=== PATIENT | male | born 1970 | race Two or more races ===

== ENCOUNTER 2024-06-15 14:04 | Outpatient (REF) | payer MEDICAID, SELFPAY ==
--- OUTSIDE RECORDS SUMMARY | 2024-06-15 14:33 | XMS_ITS | Encounter Summary ---
Author Organization [email or web address] Address [address] [facility] [address] [place] [address] Care Team Providers Care Park Naturalist Name Role Phone Veronica Andrew MD Primary Care Provider Reason for Visit * Reason Comments Sore Throat Encounter Details Date Type Department Care Team ([facility] Contact Info) Description 06/15/2024 1:20 PM EST Office Visit [facility] [address] [place], [place] [phone] Sore throat Social History Tobacco Use Types Packs/Day Years Used Date Smoking Tobacco: Never Smokeless Tobacco: Never Tobacco Cessation:Counseling Given: Not Answered Alcohol Use Standard Drinks/Week Comments Yes 2 (1 standard drink = 0.6 oz pur e alcohol) Sex and Gender Information Value Date Recorded Sex Assigned at Male 06/15/2024 11:47 AM EST Legal Sex Male 2:43 PM EDT Gender Identity Male 06/15/2024 11:47 AM EST Sexual Orientation Straight 06/15/2024 11 :47 AM EST documented as of this encounter Last Filed Vital Signs Vital Sign Reading Time Taken Comments Blood Pressure 112/68 06/15/2024 1:25 PM EST Pulse 67 06/15/2024 1:25 PM EST Temperature 36.2 ??C (97.1 ??F) 06/15/2024 1:25 PM ES T Respiratory Rate 19 06/15/2024 1:25 PM EST Oxygen Saturation 99% 06/15/2024 1:25 PM EST Inhaled Oxygen Concentration - - Weight 60 kg (132 lb 4 oz) 06/15/2024 1:25 PM ES T Height 165.1 cm (5' 5 ) 06/15/2024 1:25 PM EST Body Mass Index 22.01 06/15/2024 1:25 PM EST documented in this encounter Plan of Treatment Upcoming Encounters Date Type Department Care Team (Late st Contact Info) Description 08/17/2024 1:45 PM EDT Office Visit [facility] [address] [place] [address] Veronica Andrew MD [address] [place] [address] Scheduled Orders Name Type Priority Associated Diagnoses Orde r Schedule Chlamydia/N. Gonorrhoeae RNA, TMA, Urogenitial Microbiology Routine Sore throat Expected: 06/15/2024 (Approximate), Expires: 06/15/2025 HIV-1/2 Antigen and Antibodies, Fourth Generation, with Reflexes Lab Routine Sore throat Expected: 06/15/2024 (Approximate), Expires: 06/15/2025 Hepatitis C Antibody with Reflex to HCV, RNA, Quantitative, Real-Time PCR Lab Routine Sore throat Expected: 06/15/2024, Expires: 06/15/2025 RPR (Monitor) with Reflex to??Titer Lab Routine Sore throat Expected: 06/15/2024, Expires: 06/15/2025 CBC auto differential Lab Routine Sore throat Expected: 06/15/2024 (Approximate), Expires: 06/15/2025 Comprehensive Metabolic Panel Lab Routine Sore throat Expected: 06/15/2024 (Approximate), Expires: 06/15/2025 Lipid Panel, Standard Lab Routine Sore throat Expected: 06/15/2024 (Approximate), Expires: 06/15/2025 documented as of this encounter Procedures Procedure Name Priority Date/Time Associated Diagnosis Comments POC SUMNER ID NOW STREP A Routine 06/15/2024 1:28 PM EST Sore throat documented in this encounter Results * POCT Rapid Strep A SUMNER ID NOW (06/15/2024 1:28 PM EST) Pathologist [facility] Rapid Strep A Screen Negative Negative, None Detected QC Media Lot # [id number] Lot# Expiration Date ,[id number] Swab 06/15/2024 1:28 PM EST Veronica Andrew MD POINT OF CARE TEST ENTER/EDIT ORDERABLES Final Result documented in this encounter Visit Diagnoses Diagnosis Sore throat Acute pharyngitis documented in this encounter Care Teams Park Naturalist Relationship Specialty Start Date End Date Veronica Andrew MD [address] [place] [id number] PCP - General Family Medicine 06/15/24 documented as of this encounter
--- OUTSIDE RECORDS SUMMARY | 2024-06-15 14:33 | XMS_ITS | Clinical Summary ---
Author Organization [employer] Address [address] [facility] 7[address] [place] [address] Care Team Providers Care Fence Gate Assembler Name Role Phone Veronica Andrew MD Primary Care Provider [phone] Allergies No known active allergies Medications No known medications Active Problems No known active problems Encounters Date Type Department Care Team Description 06/15/2024 1:20 PM EST Office Visit [facility] [address] [place] [address] [phone] Sore throat 06/14/2024 Telephone [facility] [address] [place] [address] [phone] Tyrell Thomas MD new patient aPPT from Last 3 Months Social History Tobacco Use Types Packs/Day Years [...] Orientation Straight 06/15/2024 11 :47 AM EST Last Filed Vital Signs Vital Sign Reading [...] Mass Index 22.01 06/15/2024 1:25 PM EST Plan of Treatment Upcoming Encounters Date Type Department Care Team (Late st Contact Info) Description 08/17/2024 1:45 PM EDT Office Visit [facility] [address] [place] [address] Veronica Andrew MD [address] [place], [place] [phone] Health Maintenance Due Date Last Done Comments CT Colonography 1971 Colonoscopy 1971 Colorectal Cancer Screening 1971 Depression Screening 1971 FIT DNA/Cologuard 1971 FIT 1971 FOBT 1971 HIV Screening 1971 Lipid Panel 1971 SDOH Screening 1971 Sigmoidoscopy 1971 Alcohol/Substance Use Screening 1983 Tobacco Screening 1983 Family Planning (PISQ) 11/08/1986 Hepatitis C Screening 11/08/1989 DTaP/Tdap/Td Vaccines (1 - Tdap) 11/08/1990 Hepatitis B Vaccines (1 of 3 - 19+ 3-dose series) 11/08/1990 Pneumococcal Vaccine: 50+ Years (1 of 1 - PCV) 11/08/2021 Zoster Vaccines (1 of 2) 11/08/2021 COVID-19 Vaccine (3 - 2023-2 5 season) 2023 12/08/2020, 11/17/2020 Influenza Vaccine (#1) 2023 RSV Patients and Patients Aged 60 years or older (1 - 1-dose 75+ series) 11/08/2046 HIB Vaccines Aged Out No longer eligi ble based on patient's age to complete this topic HPV Vaccines Aged Out No longer eligi ble based on patient's age to complete this topic Hepatitis A Vaccines Aged Out No long er eligible based on patient's age to complete this topic IPV Vaccines Aged Out No longer eligi ble based on patient's age to complete this topic Meningococcal Vaccine Aged Out No moon miguel a eligible based on patient's age to complete this topic RSV under 20 months Aged Out No longe r eligible based on patient's age to complete this topic Rotavirus Vaccines Aged Out No longer eligible based on patient's age to complete this topic Procedures Procedure Name Priority Date/Time Associated Diagnosis Comments POC SUMNER ID NOW STREP A Routine 06/15/2024 1:28 PM EST Sore throat from Last 3 Months Results * POCT Rapid Strep A SUMNER ID NOW (06/15/2024 1:28 PM EST) Rapid Strep A Screen Negative Negative, None Detected QC Media Lot # [id number] Lot# Expiration Date [id number] Swab 06/15/2024 1:28 PM EST Veronica Andrew MD POINT OF CARE TEST ENTER/EDIT ORDERABLES Final Result from Last 3 Months Insurance , [facility], [place] [address] [employer] Care Teams Fence Gate Assembler Relationship Specialty Start Date End Date Veronica Andrew MD [address] [place] [address] PCP - General Family Medicine 06/15/24
--- OUTSIDE RECORDS SUMMARY | 2024-06-15 14:33 | XMS_ITS | Encounter Summary ---
Author Organization [employer] Address [address] [facility] 7[address] [place] [address] Care Team Providers Care Household Refrigerator Mechanic Name Role Phone Veronica Andrew MD Primary Care Provider [phone] Reason for Visit * Reason Onset Date Comments new patient aPPT 06/14/2024 Encounter Details Date Type Department Care Team ([facility] Contact Info) Description 06/14/2024 Telephone [facility] [address] [place], [place] [phone] Tyrell Thomas MD [address] [place] [address] new patient aPPT Social History Tobacco Use Types Packs/Day Years Used Date Smoking Tobacco: Never Assessed Sex and Gender Information Value Date Recorded Sex Assigned at Male 06/15/2024 11:47 AM EST Legal Sex Male 2:43 PM EDT Gender Identity Male 06/15/2024 11:47 AM EST Sexual Orientation Straight 06/15/2024 11 :47 AM EST documented as of this encounter Miscellaneous Notes * Telephone Encounter - Beverly Santamaria - 06/15/2024 9:30 AM EST Outgoing call to pt to book STOCK CHECKERER appt. The person you are calling cannot accept phone calls at thistime ( Please verify contact info. If pt comes in or happens to call. Thank you! ) * Telephone Encounter - Judith Mejía - 06/14/2024 3:46 PM EST PT walked in requesting a new patient appt States no-one has gotten back to him in 5 months. documented in this encounter Plan of Treatment Upcoming Encounters Date Type Department Care Team (Late st Contact Info) Description 08/17/2024 1:45 PM EDT Office Visit [facility] [address] [place] [address] Veronica Andrew MD [address] [place], [place] [phone] documented as of this encounter Visit Diagnoses Not on filedocumented in this encounter Care Teams Household Refrigerator Mechanic Relationship Specialty Start Date End Date Veronica Andrew MD [address] [place] [address] PCP - General Family Medicine 06/15/24 documented as of this encounter
[2024-06-15 16:41] LABS: MANUAL DIFF FLAG NO
[2024-06-15 16:51] LABS: Basophils Percent Auto 0.8 % (0-2); Eosinophils Absolute Auto 0.1 X10*3/uL (0.0-0.4); Eosinophils Percent Auto 1.9 % (0-4); Hematocrit 42.2 % (42.0-52.0); Hemoglobin 14.1 g/dl (14.0-18.0); Imm Gran Abs Auto 0.02 X10*3/uL (0.00-0.03); Imm Gran Pct Auto 0.4 % (0.0-0.4); Lymphocytes Absolute Auto 1.6 X10*3/uL (1.2-4.9); Lymphocytes Percent Auto 32.2 % (20-40); Mean Corpuscular HGB Conc 33.4 g/dl (31.0-36.0); Mean Corpuscular Hemoglobin 29.3 pg (27.0-33.0); Mean Corpuscular Volume 87.7 fL (80.0-98.0); Mean Platelet Volume 10.5 fL (9.4-12.4); Monocytes Absolute Auto 0.5 X10*3/uL (0.1-1.2); Neutrophils Absolute Auto 2.6 x10*3/uL (2.0-8.3); Neutrophils Percent Auto 53.7 % (45-73); Platelet Count 250 X10*3/uL (160-400); Red Blood Count 4.81 X10*6/uL (4.60-5.80); Red Cell Distribution Width 12.7 % (11.0-16.0); White Blood Count 4.8 X10*3/uL (4.8-10.8)
[2024-06-15 17:22] LABS: Alanine Aminotransferase 25 U/L (0-40); Albumin Level 4.4 g/dL (3.5-5.0); Alkaline Phosphatase 81 U/L (39-117); Anion Gap 9 (12-20); Aspartate Amino Transferase 41 U/L (5-37); Bilirubin Total 0.5 mg/dL (0.0-1.0); Blood Urea Nitrogen 9 mg/dL (9-16); Calcium 9.6 mg/dL (8.4-10.2); Carbon Dioxide 28 mmol/L (22-29); Chloride 106 mmol/L (96-108); Cholesterol 151 mg/dL (<200); Estimated Glomerular Filt Rate > 60; Glucose Random 99 mg/dL (60-115); HDL Cholesterol 48 mg/dL (>40); LDL Cholesterol Calculated 94 mg/dL (<100); Potassium 4.7 mmol/L (3.3-5.1); Sodium 138 mmol/L (135-145); Triglycerides 45 mg/dL (<150)
[2024-06-16 02:23] LABS: CT PCR NOT DETECTED (Not Detect.); NG PCR NOT DETECTED (Not Detect.)
[2024-06-16 08:13] LABS: HIV AB/AG Nonreactive (Nonreactive); HIV Num 1 0.05 S/CO (0.00-0.99); ~Hepatitis C Antibody Nonreactive (Nonreactive)
[2024-06-18 17:08] LABS: RPR Rapid Plasma Reagin NON-REACTIVE (NON-REACTIVE)
== END 2024-06-15 14:05 | disposition home or self-care (01) ==
LOC: HO.HHCL 14:04
PROVIDERS: Visit Provider General Practice
DX: J02.9 Acute pharyngitis, unspecified (principal)
CPT/HCPCS: 80053; 80061; 85025; 86592; 86803; 87389; 87491; 87591

== ENCOUNTER 2024-08-17 14:49 | Outpatient (REF) | payer MEDICAID, SELFPAY ==
--- OUTSIDE RECORDS SUMMARY | 2024-08-17 15:32 | XMS_ITS | Encounter Summary ---
Author Organization [employer] Address [address] [facility] [address] [place] [address] Care Team Providers Care Motor Vehicle Emissions Inspector Name Role Phone Veronica Andrew MD Primary Care Provider [phone] Reason for Visit * Reason Onset Date Comments Chart Prep 08/15/2024 Encounter Details Date Type Department Care Team ([facility] Contact Info) Description 08/15/2024 Telephone [facility] [address] [place] [phone] Veronica Andrew MD [address] [place], [place] [phone] Chart Prep Social History Tobacco Use Types Packs/Day Years Used Date Smoking Tobacco: Never Smokeless Tobacco: Never Alcohol Use Standard Drinks/Week Comments Yes 2 (1 standard drink = 0.6 oz pur e alcohol) Sex and Gender Information Value Date Recorded Sex Assigned at Male 06/15/2024 11:47 AM EST Legal Sex Male 2:43 PM EDT Gender Identity Male 06/15/2024 11:47 AM EST Sexual Orientation Straight 06/15/2024 11 :47 AM EST documented as of this encounter Miscellaneous Notes * Telephone Encounter - Francisca Colon MA - 08/15/2024 1:24 PM EDT Chart Prep Labs: done Images: done Referrals: [facility] Vaccines due: yes Screenings: colonoscopy Overdue care gaps: SBIRT, SDOH, PHQ-9, CHILANGO-7, Oral health screening, Disability screen, and Tobacco documented in this encounter Plan of Treatment Not on file documented as of this encounter Visit Diagnoses Not on filedocumented in this encounter Care Teams Motor Vehicle Emissions Inspector Relationship Specialty Start Date End Date Veronica Andrew MD [address] [place] [address] PCP - General Family Medicine 06/15/24 documented as of this encounter
--- OUTSIDE RECORDS SUMMARY | 2024-08-17 15:32 | XMS_ITS | Encounter Summary ---
Author Organization [employer] Address [address] [facility] 7[address] [place] [address] Care Team Providers Care Public Health Registrar Name Role Phone Veronica Andrew MD Primary Care Provider [phone] Encounter Details Date Type Department Care Team (Latest Contact Info) Description 08/17/2024 Travel Social History Tobacco Use Types Packs/Day Years Used Date Smoking Tobacco: Never Smokeless Tobacco: Never Alcohol Use Standard Drinks/Week Comments Yes 2 (1 standard drink = 0.6 oz pur e alcohol) Depression Answer Date Recorded Patient Health Questionnaire-9 Score 0 08/17/2024 Patient Health Questionnaire-9 Score 0 08/17/2024 Last PHQ-9: Questionnaire Data Not on file 0 08/17/2024 Housing Stability Answer Date Recorded What is your housing situation today? I have willy seymour 08/17/[address] you li ve. Do you have problems with any of the following? None of the above 08/17/2024 Food Insecurity Answer Date Recorded Within the past 12 months, y ou worried that your food would run out before you got money to buy more: Never True 08/17/2024 Within the past 12 months,th e food you bought just didn't last and you didn't have enough money to get more: Never True Transportation Answer Date Recorded In the past 12 months, has l ack of transportation kept you from medical appts, meetings, work or from getting things needed for daily living? No 08/17/2024 Utilities Answer Date Recorded In the past 12 months, has t he electric, gas, oil or water company threatened to shut off services in your home? No 08/17/2024 Depression Answer Date Recorded Patient Health Questionnaire-2 Score 0 08/17/2024 Internet Access Answer Date Recorded Internet Access Q1 Yes 08/17/2024 Internet Access Q2 Not on file 08/17/2024 Sex and Gender Information Value Date Recorded Sex Assigned at Male 06/15/2024 11:47 AM EST Legal Sex Male 2:43 PM EDT Gender Identity Male 06/15/2024 11:47 AM EST Sexual Orientation Straight 06/15/2024 11 :47 AM EST documented as of this encounter Plan of Treatment Not on file documented as of this encounter Visit Diagnoses Not on filedocumented in this encounter Additional Health Concerns Assessment Noted Time PHQ-9 Depression Total Score: 0 08/18/19 1:58 PM EDT documented as of this encounter Care Teams Public Health Registrar Relationship Specialty Start Date End Date Veronica Andrew MD [address] [place] [id number] PCP - General Family Medicine 06/15/24 documented as of this encounter
--- OUTSIDE RECORDS SUMMARY | 2024-08-17 15:32 | XMS_ITS | Encounter Summary ---
Author Organization [employer] Address [address] [facility] 7t [place] [address] Care Team Providers Care Tail Ripper Name Role Phone Veronica Andrew MD Primary Care Provider [phone] Reason for Visit * Reason Comments Follow-up Encounter Details Date Type Department Care Team ([facility] Contact Info) Description 08/17/2024 1:45 PM EDT Office Visit [facility] [address] [place], [place] [phone] Veronica Andrew MD [address] [place], [place] [phone] Hair loss (Primary Dx) Social History Tobacco Use Types Packs/Day Years [...] Sign Reading Time Taken Comments Blood Pressure 103/72 08/17/2024 1:55 PM EDT Pulse 72 08/17/2024 1:55 PM EDT Temperature - - Respiratory Rate 18 08/17/2024 1:55 PM EDT Oxygen Saturation 99% 08/17/2024 1:55 PM EDT Inhaled Oxygen Concentration - - Weight 55.1 kg (121 lb 6.4 oz) 08/17/2024 1:55 P M EDT Height 165.1 cm (5' 5 ) 08/17/2024 1:55 PM EDT Body Mass Index 20.2 08/17/2024 1:55 PM EDT documented in this encounter Plan of Treatment Scheduled Orders Name Type Priority Associated Diagnoses Orde r Schedule TSH W/Reflex to FT4 Lab Routine Hair loss Expected: 08/17/2024 (Approximate), Expires: 08/17/2025 Sed Rate by Modified Elenaren Lab Routine Hair loss Expected: 08/17/2024, Expires: 08/17/2025 Vitamin B12/Folate, Serum Panel Lab Routine Hair loss Expected: 08/17/2024, Expires: 08/17/2025 documented as of this encounter Visit Diagnoses Diagnosis Hair loss- Primary Unspecified alopecia documented in this encounter Additional Health Concerns Assessment Noted Time PHQ-9 Depression Total Score: 0 08/18/19 1:58 PM EDT documented as of this encounter Care Teams Tail Ripper Relationship Specialty Start Date End Date Veroinca Andrew MD [address] [place] [address] PCP - General Family Medicine 06/15/24 documented as of this encounter
--- OUTSIDE RECORDS SUMMARY | 2024-08-17 15:32 | XMS_ITS | Clinical Summary ---
Author Organization [employer] [facility] Address [address] [place] [address] Care Team Providers Care Junior Estimator Name Role Phone Veronica Andrew MD Primary Care Provider [phone] Allergies No known active allergies Medications No known medications Active Problems Problem Noted Date Diagnosed Date Laryngitis 06/15/2024 Assessment & Plan (06/15/2024 2:49 PM EST): Patient with years of sore throat and feeling of throat closing with speech. Will order basic labs as he has not had primary care in 15 years, and refer to ENT for [employer] [facility] scope. Encounters Date Type Department Care Team Description 08/17/2024 1:45 PM EDT Office Visit [facility] [address] [place] [phone] Veronica Andrew MD Hair loss (Primary Dx) 08/17/2024 Travel 08/15/[address] [facility] [address] [place] [phone] Veronica Andrew MD Chart Prep 07/06/2024 Population Health Risk Score [facility] ([facility]) Department [address] [phone] Provider, Population Health Generic 06/18/[address] [facility] [address] [place] [phone] Veronica Andrew MD Results 06/15/2024 1:20 PM EST Office Visit [facility] [address] [place] [phone] Veronica Andrew MD Laryngitis (Primary Dx); Sore throat 06/14/[address] [facility] [address] [place] [phone] Tyrell Thomas MD new patient aPPT from [...] Pulse 72 08/17/2024 1:55 PM EDT Temperature 36.2 ??C (97.1 ??F) 06/15/2024 1:25 PM ES T Respiratory Rate 18 08/17/2024 1:55 PM EDT Oxygen Saturation 99% 08/17/2024 1:55 PM EDT Inhaled Oxygen Concentration - - Weight 55.1 kg (121 lb 6.4 oz) 08/17/2024 1:55 P M EDT Height 165.1 cm (5' 5 ) 08/17/2024 1:55 PM EDT Body Mass Index 20.2 08/17/2024 1:55 PM EDT Plan of Treatment Health Maintenance Due Date Last Done Comments CT Colonography 1971 Colonoscopy 1971 Colorectal Cancer Screening 1971 FIT DNA/Cologuard 1971 FIT 1971 FOBT 1971 Sigmoidoscopy 1971 Family Planning (PISQ) 11/08/1986 DTaP/Tdap/Td Vaccines (1 - Tdap) 11/08/1990 Hepatitis B Vaccines (1 of 3 - 19+ 3-dose series) 11/08/1990 Pneumococcal Vaccine: 50+ Years (1 of 1 - PCV) 11/08/2021 Zoster Vaccines (1 of 2) 11/08/2021 COVID-19 Vaccine (3 - 2023-2 5 season) 2023 12/08/2020, 11/17/2020 Influenza Vaccine (#1) 2023 Alcohol/Substance Use Screening 08/17/2025 08/17/2024 Depression Screening 08/17/2025 08/17/2024, 08/17/2024 SDOH Screening 08/17/2025 08/17/2024 Tobacco Screening 08/17/2025 08/17/2024 Lipid Panel 06/15/2029 06/15/2024 RSV Patients and Patients Aged 60 years or older (1 - 1-dose 75+ series) 11/08/2046 HIV Screening Completed 06/15/2024 Hepatitis C Screening Completed 06/15/2024 HIB Vaccines Aged Out No longer eligi [...] Procedure Name Priority Date/Time Associated Diagnosis Comments LIPID PANEL, STANDARD Routine 06/15/2024 2:08 PM EST Sore throat COMPREHENSIVE METABOLIC PANEL Routine 06/15/2024 2:08 PM EST Sore throat CBC WITH AUTO DIFFERENTIAL Routine 06/15/2024 2:08 PM EST Sore throat RPR (MONITOR) W/REFL TITER Routine 06/15/2024 2:08 PM EST Sore throat HEPATITIS C AB W/REFL TO HCV RNA, QN, PCR Routine 06/15/2024 2:08 PM EST Sore throat HIV 1/2 ANTIGEN/ANTIBODY, FOURTH GENERATION W/RFL Routine 06/15/2024 2:08 PM EST Sore throat CHLAMYDIA/N. GONORRHOEAE RNA, TMA, UROGENITAL Routine 06/15/2024 2:08 PM EST Sore throat POC SUMNER ID NOW STREP A Routine 06/15/2024 1:28 PM EST Sore throat from Last 3 Months Results * CBC auto differential (06/15/2024 2:08 PM EST) White Blood Count 4.8 4.8 - 10.8 X10*3/uL [facility] Red Blood Count 4.81 4.60 - 5.80 X10*6/uL [facility] Hemoglobin 14.1 14.0 - 18.0 g/dl [facility] Hematocrit 42.2 42.0 - 52.0 % [facility] Mean Corpuscular Volume 87.7 80.0 - 98.0 fL [facility] Mean Corpuscular Hemoglobin 29.3 27.0 - 33.0 pg [facility] Mean Corpuscular HGB Conc 33.4 31.0 - 36.0 g/dl [facility] Red Cell Distribution Width 12.7 11.0 - 16.0 % [facility] Platelet Count 250 160 - 400 X10*3/uL [facility] Mean Platelet Volume 10.5 9.4 - 12.4 fL [facility] Neutrophils Percent Auto 53.7 45 - 73 % [facility] Imm Gran Pct Auto 0.4 0.0 - 0.4 % [facility] Lymphocytes Percent Auto 32.2 20 - 40 % [facility] Monocytes Percent Auto 11.0 2 - 11 % [facility] Eosinophils Percent Auto 1.9 0 - 4 % [facility] Basophils Percent Auto 0.8 0 - 2 % [facility] NRBC Pct Auto 0.0 0.0 - 0.2 /100WBC [facility] Neutrophils Absolute Auto 2.6 2.0 - 8.3 x10*3/uL [facility] Imm Gran Abs Auto 0.02 0.00 - 0.03 X10*3/uL [facility] Lymphocytes Absolute Auto 1.6 1.2 - 4.9 X10*3/uL [facility] Monocytes Absolute Auto 0.5 0.1 - 1.2 X10*3/uL [facility] Eosinophils Absolute Auto 0.1 0.0 - 0.4 X10*3/uL [facility] Basophils Absolute Auto 0.0 0.0 - 0.2 X10*3/uL [facility] NRBC Abs Auto 0.000 0.0 - 0.012 X10*3/uL [facility] Blood Venous blood specimen / Unknown 06/15/2024 2:08 PM EST 06/15/2024 4:31 PM EST us Veronica Andrew MD LAB BLOOD ORDERABLES Final Res ult [facility] [address] [place] [phone] * Hepatitis C Antibody with Reflex to HCV, RNA, Quantitative, Real-Time PCR (06/15/2024 2:08 PM EST) [facility] Hepatitis C Antibody Nonreactive Nonreactive [facility] Comment:Antibodies to HCV no t detected; does not exclude early acuteHCV infection. Blood Venous blood specimen / Unknown 06/15/2024 2:08 PM EST 06/15/2024 4:31 PM EST us Veronica Andrew MD LAB BLOOD ORDERABLES Final Res ult [facility] [address] [place] [phone] * Chlamydia/N. Gonorrhoeae RNA, TMA, Urogenitial (06/15/2024 2:08 PM EST) [facility] CT PCR NOT DETECTED Not Detect. [facility] Comment:A not detected test result does not exclude the possibilityof infection because test results can be affected byimproper specimen collection, concurrent antibiotic therapy,or the number of organisms in the specimen which may bebelow the sensitivity of the test. As with many diagnostictests, results from the Xpert CT/NG assay should beinterpreted in conjunction with other laboratory andclinical data available to the clinician.Xpert CT/NG performance has not been evaluated in patientsless than 14 years of age. The assay should not be used forthe evaluationof suspected sexual abuse or for other medico-legalindications. Additional testing is recommended in anycircumstance when false positive or false negative resultscould lead to adverse medical, social or psychologicalconsequences. NG PCR NOT DETECTED Not Detect. [facility] Comment:A not detected test result does not exclude the possibilityof infection because test results can be affected byimproper specimen collection, concurrent antibiotic therapy,or the number of organisms in the specimen which may bebelow the sensitivity of the test. As with many diagnostictests, results from the Xpert CT/NG assay should beinterpreted in conjunction with other laboratory andclinical data available to the clinician.Xpert CT/NG performance has not been evaluated in patientsless than 14 years of age. The assay should not be used forthe evaluationof suspected sexual abuse or for other medico-legalindications. Additional testing is recommended in anycircumstance when false positive or false negative resultscould lead to adverse medical, social or psychologicalconsequences. Urine (Urine, Random) 06/15/2024 2:08 PM EST 06/15/2024 5:13 PM EST Narrative [facility] - 06/16/2024 2:23 AM EST Urine Veronica Andrew MD LAB MICROBIOLOGY - GENERAL ORD ERABLES Final Result Performing Organization Address [facility] Co de Phone Number [facility] [address] [place] [phone] * RPR (Monitor) with Reflex to??Titer (06/15/2024 2:08 PM EST) RPR (Monitor) w/Refl Titer NON-REACTI VE NON-REACT [facility] Comment:THIS TEST WAS PERFOR MED AT:[facility] [address] [id number] TEMPLETON MD Rapid Plasma Reagin Ab Titer TNP [facility] Blood Venous blood specimen / Unknown 06/15/2024 2:08 PM EST 06/15/2024 4:31 PM EST Veronica Andrew MD LAB BLOOD ORDERABLES Final Res ult Performing Organization Address [facility] Co de Phone Number [facility] [address] [place] [address] [phone] * HIV-1/2 Antigen and Antibodies, Fourth Generation, with Reflexes (06/15/2024 2:08 PM EST) HIV AB/AG Nonreactive Nonreactive [facility] Comment:HIV-1 p24 Ag and/or HIV-1/HIV-2 Ab not detected.A test result that is nonreactive does not exclude thepossibility of exposure to or infection with HIV-1 and/orHIV-2. Nonreactive results in this assay for individualswith prior exposure to HIV-1 and/or HIV-2 may be due toantigen and antibody levels that are below the limit ofdetection of this assay.[employer] HIV Ag/Ab Combo assay result andsupplemental assay results should be interpreted inconjunction with the patient's clinical presentation,history and other laboratory results. If the results areinconsistent with clinical evidence, additional testing issuggested to confirm the result. Blood Venous blood specimen / Unknown 06/15/2024 2:08 PM EST 06/15/2024 4:31 PM EST us Veronica Andrew MD LAB BLOOD ORDERABLES Final Res ult [facility] [address] [place] [phone] * Lipid Panel, Standard (06/15/2024 2:08 PM EST) Triglycerides 45 <150 mg/dL [facility] Comment:Desirable Triglyceri de: less than 150 mg/dLBorderline High Triglyceride 150-199 mg/dLHigh Triglyceride: 200-499 mg/dLVery High Triglyceride: greater than or equal to 5OO mg/dL Cholesterol 151 <200 mg/dL [facility] Comment:Desirable Cholestero l: less than 200 mg/dLBorderline High Cholesterol: 200-239 mg/dLHigh Cholesterol: greater than 239 mg/dL LDL Cholesterol Calculated 94 <100 mg/dL [facility] Comment:Desirable LDL: less than 100 mg/dLNear Optimal/Above Optimal LDL: 110- 129 mg/dLBorderline High LDL: 130-159 mg/dLHigh LDL: 160-189 mg/dLVery High LDL: greater than or equal to 190 mg/dL HDL Cholesterol 48 >40 mg/dL [facility] Comment:Desirable HDL: great er than 40 mg/dL Note: This HDL assay may give artificially low results in patients with liver disease. Blood Venous blood specimen / Unknown 06/15/2024 2:08 PM EST 06/15/2024 4:31 PM EST us Veronica Andrew MD LAB BLOOD ORDERABLES Final Res ult [facility] [address] [place] [phone] * (ABNORMAL) Comprehensive Metabolic Panel (06/15/2024 2:08 PM EST) Sodium 138 135 - 145 mmol/L [facility] Potassium 4.7 3.3 - 5.1 mmol/L [facility] Chloride 106 96 - 108 mmol/L [facility] Carbon Dioxide 28 22 - 29 mmol/L [facility] Anion Gap 9(L) 12 - 20 [facility] Urea Nitrogen (BUN) 9 9 - 16 mg/dL [facility] Creatinine, Serum 0.85 0.5 - 1.4 mg/dL [facility] Estimated Glomerular Filt Rate >60 [facility] Comment:Chronic Kidney Disea se: Estimated GFR < 60 mL/min/1.76g7Esjyor Kidney Disease: Estimated GFR < 15 mL/min/1.73m2 Glucose 99 60 - 115 mg/dL [facility] Calcium 9.6 8.4 - 10.2 mg/dL [facility] Bilirubin, Total 0.5 0.0 - 1.0 mg/dL [facility] Aspartate Amino Transferase 41(H) 5 - 37 U/L [facility] Alanine Aminotransferase 25 0 - 40 U/L [facility] Total Protein 8.0 6.5 - 8.0 g/dL [facility] Albumin Level 4.4 3.5 - 5.0 g/dL [facility] Alkaline Phosphatase 81 39 - 117 U/L [facility] Blood Venous blood specimen / Unknown 06/15/2024 2:08 PM EST 06/15/2024 4:31 PM EST us Veronica Andrew MD LAB BLOOD ORDERABLES Final Res ult [facility] [address] [place] [phone] [phone] * POCT Rapid Strep A SUMNER ID NOW (06/15/2024 1:28 PM EST) Rapid Strep A Screen Negative Negative, None Detected QC Media Lot # [id number] Lot# Expiration Date Swab 06/15/2024 1:28 PM EST Veronica Andrew MD POINT OF CARE TEST ENTER/EDIT ORDERABLES Final Result from Last 3 Months Insurance , [facility], [place] [address] [employer] Care Teams Junior Estimator Relationship Specialty Start Date End Date Veronica Andrew MD [address] [place] [address] PCP - General Family Medicine 06/15/24
[2024-08-17 16:53] LABS: TSH reflex Free T4 1.35 uIU/mL (0.32-4.0)
[2024-08-17 16:58] LABS: Erythrocyte Sedimentation Rate 2 MM/HR (0-15)
[2024-08-17 17:02] LABS: Vitamin B12 370 pg/mL (200-900)
== END 2024-08-17 14:50 | disposition home or self-care (01) ==
LOC: HO.HHCL 14:49
PROVIDERS: Visit Provider General Practice
DX: L65.9 Nonscarring hair loss, unspecified (principal)
CPT/HCPCS: 36415; 82607; 82746; 84443; 85652